=== PATIENT | male | born 1985 | race Caucasian/White ===

== ENCOUNTER 2022-02-22 14:28 | Emergency (ER) | payer SELFPAY ==
[2022-02-22 14:30] VITALS: BP 134/78; PULSE 78; RESP 16; TEMP 37.2; O2SAT 99; BMI 31.8
--- NOTE | 2022-02-22 17:19 | EDS_ITS ---
HPI History of Present Illness Chief Complaint: Mental Health Informant: patient Onset/Context/Timing Onset: Days (3 to 4 days) Context: Gradual Onset Timing: Waxes and wanes Narrative Narrative: Patient presents due to mental health concerns. He states over the past 4 days or so he has had thoughts of being God and having visions of dying. He does not have any visions of how he denies, just has this overwhelming feeling that he is not going to be here much longer. He denies any thoughts of hurting himself or anyone else. He denies auditory or visual hallucinations. Patient denies any history of mental illness. He does note that he stopped smoking weed 3 or 4 days ago. He denies any other drug use denies alcohol use. PFSH PFSH Medical History no medical history no medical history Allergy/AdvReac Type Severity Reaction Status Date / Time No Known Allergies Allergy Verified 02/22/22 14:30 Social History Smoking Status: Current every day smoker tobacco type: cigarettes ROS ROS ED Constitutional Constitutional ED: Denies chills or fever(s) Eyes Eyes: Denies change in vision or discharge from eye(s) ENT ENT ED: Denies discharge from eye(s), rhinorrhea or sore throat Cardiovascular Cardiovascular: Denies chest pain or palpitations Respiratory/Chest Respiratory/Chest: Denies cough or dyspnea Gastrointestinal Gastrointestinal: Denies abdominal pain, nausea or vomiting Genitourinary Genitourinary ED: Denies dysuria Musculoskeletal Musculoskeletal: Denies back pain or extremity pain Integumentary Denies Abrasions or rash Neurologic Neurologic: Denies headache(s) or weakness Psychiatric Psychiatric: Denies anxiety or depression Endocrine Endocrinology: Denies polydipsia or polyuria Allergic/Immunologic Allergic/Immunologic ED: Denies lip swelling or urticaria EXAM Physical Exam Const Vital Signs: 02/22/22 14:30 02/22/22 19:26 02/22/22 22:22 Temperature 98.9 F Temperature Source Temporal Pulse Rate 78 68 Respiratory Rate 16 16 16 Blood Pressure 134/78 H 121/77 H Blood Pressure Mean 96 91 Pulse Ox 99 98 Oxygen Delivery Method Room Air Room Air Positive well nourished and well developed General Appearance ED: well developed HEENT Reports normocephalic and head/scalp atraumatic Eyes PERRL and EOMs intact bilaterally Neck supple Chest Wall inspection of chest normal and palpation of chest normal Resp normal respiratory effort and clear to auscultation bilaterally Cardio regular rate and regular rhythm GI normal to inspection, nondistended, normoactive bowel sounds Palpation: soft Back/Spine no CVA tenderness Extremity normal to inspection Neuro oriented x3 and no sensory deficits noted Sensorium / Orientation: alert Motor Exam: strength 5/5 throughout Psych mental status grossly normal Skin no rashes or lesions noted MDM MDM MDM Narrative Medical decision making narrative: Lab work for mental health clearance obtained. Lab Data Attestation: I reviewed the patient's lab results. Labs: Laboratory Results - last 24 hr 02/22/22 02/22/22 02/22/22 17:25 17:25 17:25 WBC 8.5 RBC 4.96 Hgb 14.7 Hct 42.4 MCV 85.5 MCH 29.6 MCHC 34.7 RDW Std Deviation 38.3 RDW Coeff of Rashid 12.4 Plt Count 267 MPV 9.9 Immature Gran % (Auto) 0.100 Neut % (Auto) 39.6 L Lymph % (Auto) 48.1 H Hettinger % (Auto) 9.6 Eos % (Auto) 2.0 Baso % (Auto) 0.6 Absolute Neuts (auto) 3.4 Absolute Lymphs (auto) 4.08 Nucleated RBC % 0 Sodium 140 Potassium 3.8 Chloride 105 Carbon Dioxide 30.0 Anion Gap 5 BUN 13 Creatinine 0.75 Estim Creat Clear Calc 148.01 Est GFR (MDRD) Af Amer 151 Est GFR (MDRD) Non-Af 125 BUN/Creatinine Ratio 17.4 Glucose 112 H Calcium 9.7 Urine Opiates Screen Urine Methadone Screen Ur Barbiturates Screen Ur Phencyclidine Scrn Ur Amphetamines Screen MDMA (Ecstasy) Screen U Benzodiazepines Scrn Urine Cocaine Screen U Cannabinoids Screen Ur Drug Screen Comment Ethyl Alcohol < 3.0 02/22/22 17:25 WBC RBC Hgb Hct MCV MCH MCHC RDW Std Deviation RDW Coeff of Rashid Plt Count MPV Immature Gran % (Auto) Neut % (Auto) Lymph % (Auto) Hettinger % (Auto) Eos % (Auto) Baso % (Auto) Absolute Neuts (auto) Absolute Lymphs (auto) Nucleated RBC % Sodium Potassium Chloride Carbon Dioxide Anion Gap BUN Creatinine Estim Creat Clear Calc Est GFR (MDRD) Af Amer Est GFR (MDRD) Non-Af BUN/Creatinine Ratio Glucose Calcium Urine Opiates Screen NEGATIVE Urine Methadone Screen NEGATIVE Ur Barbiturates Screen NEGATIVE Ur Phencyclidine Scrn NEGATIVE Ur Amphetamines Screen NEGATIVE MDMA (Ecstasy) Screen NEGATIVE U Benzodiazepines Scrn NEGATIVE Urine Cocaine Screen NEGATIVE U Cannabinoids Screen POSITIVE H Ur Drug Screen Comment Ethyl Alcohol Treatment and Re-Evaluation Narrative: CBC and chemistry studies unremarkable. Alcohol level is negative. Talk screen positive only for cannabinoids. Patient was seen by counseling center. They will make a referral and follow-up. Patient also has a phone number for a telemetry doc psychiatry service that he is going to call tomorrow. He continues to deny any suicidal homicidal ideation. He feels comfortable to discharge home and have close follow-up. He was reminded that we are here 24/7 if he has any concerning symptoms or thoughts he can return at any point. He voices understanding and agreement. Discharge Plan Triage Chief Complaint: Mental Health ED Provider: Felicia Carvajal Dx/Rx/DC Orders Clinical Impression: Anxiety, Delusions Instructions: Understanding Delusional Disorders, ED Anxiety Reaction Primary Care Provider: Care Physician,No Primary Referrals: Counseling,Center [Group of Physicians] - As soon as possible Care Physician,No Primary [Primary Care Provider] - Disposition Disposition: Home, Self Care
[2022-02-22 17:42] LABS: Absolute Lymphocyte Count 4.08 X10^3/uL (0.83-4.51); Absolute Neutrophil Count 3.4 X10^3/uL (2.0-7.7); Basophil# 0.05 X10^3/uL; Basophil% 0.6 % (0-1); Eosinophil# 0.17 X10^3/uL; Hematocrit 42.4 % (40-54); Hemoglobin 14.7 g/dL (13.0-16.5); Lymphocyte # 4.08 X10^3/ul (0.83-4.51); Lymphocyte % 48.1 % (19-41); Mean Corp Hgb Conc 34.7 g/dL (32-36); Mean Corpuscular Hgb 29.6 pg (27.0-32.0); Mean Corpuscular Volume 85.5 fL (80-94); Mean Platelet Vol. 9.9 fl (6.2-12.0); Monocyte# 0.81 X10^3/uL; Monocyte% 9.6 % (0-10); NRBC Flagged by Analyzer 0 % (0-5); Neutrophil # 3.36 X10^3/uL (2.7-7.7); Neutrophil % 39.6 % (47-70); Platelet Count 267 K/mm3 (150-450); RBC Distribution Width CV 12.4 % (11.6-14.6); RBC Distribution Width SD 38.3 fl (35.1-43.9); Red Blood Count 4.96 M/mm3 (4.6-6.2); White Blood Count 8.5 K/mm3 (4.4-11.0)
[2022-02-22 18:01] LABS: Anion Gap 5 (5-15); BUN 13 mg/dL (7-18); BUN/Creat Ratio 17.4 RATIO (10-20); Calcium,Total 9.7 mg/dL (8.5-10.1); Chloride 105 mmol/L (98-107); Creatinine, Serum 0.75 mg/dL (0.70-1.30); EST Glomerular Filtration Rate 125 mL/min (>60); Est Glom Filt Rate - Afr Amer 151 mL/min (>60); Estimated Creatinine Clearance 148.01 ml/min; Glucose 112 mg/dL (74-106); Potassium 3.8 mmol/L (3.5-5.1); Sodium Level 140 mmol/L (136-145)
--- NOTE | 2022-02-22 18:03 | NURSING ---
CRISIS STATES THAT IF PT NEEDS PLACED- THEN HE WILL GO ON A WAIT LIST AT [facility] (8 AHEAD OF HIM) SINCE HE DOESN'T HAVE INSURANCE.
--- NOTE | 2022-02-22 18:04 | CM.ED ---
Addendum entered by Denise Carson 02/22/22 20:04: STACIE contacted [facility] to verify they received the last fax regarding patient. Rosibel from [facility] verified they received the fax but requested the covid results and EKG also be completed and faxed before patient is evaluated. MD Carvajal informed of information requested by [facility] as well as [facility]. ARSEN Burkett Addendum entered by Denise Carson 02/22/22 19:28: was contacted by Crisis staff explaining patient needs to be medically clear before they are able to evaluate him and inquired about his blood alcohol level. SW explained that was pending and it would be faxed to [facility] once available. MD Carvajal updated by SW patient information had been faxed to [facility] for Crisis to review before evaluating him. STACIE faxed updated labs to include patient's tox screen to [facility]. ARSEN Burkett Original Note: STACIE Note Referral Reason: Mental Health verified patient does not have insurance currently with [facility] staff. STACIE contacted [facility] at [facility] to provide them with demographic information as well as patient's reason for being at ED. Rosibel with [facility] explained patient was new to their system and they would need information faxed to their office to get him entered into their system before he would be evaluated. 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 STACIE faxed H&P, facesheet and 24 case management data to [facility]- [facility]. Plan: further evaluation from [facility] with [facility] ARSEN Burkett
[2022-02-22 18:12] LABS: Amphetamine Urine VISTA NEGATIVE (<1000 ng/mL); Barbiturate Urine VISTA NEGATIVE (< 200 ng/mL); Benzodiazepine Urine VISTA NEGATIVE (< 200 ng/mL); Cocaine Urine VISTA NEGATIVE (< 300 ng/mL); Ecstacy Urine VISTA NEGATIVE (< 500 ng/mL); Methadone Urine VISTA NEGATIVE (< 300 ng/mL); PCP Urine VISTA NEGATIVE (< 25 ng/mL); THC Urine VISTA POSITIVE (< 50 ng/mL); Vista UDS pH Range 6
[2022-02-22 18:56] LABS: Alcohol, Blood (Medical)-Serum < 3.0 mg/dL
[2022-02-22 19:26] VITALS: BP 121/77; PULSE 68; RESP 16; O2SAT 98
[2022-02-22 22:22] VITALS: RESP 16
== END 2022-02-22 23:13 | disposition home or self-care (01) ==
PROVIDERS: Emergency Provider Emergency Medicine; Visit Provider Emergency Medicine
DX: F22 Delusional disorders (principal); F41.9 Anxiety disorder, unspecified; F17.210 Nicotine dependence, cigarettes, uncomplicated
CPT/HCPCS: 80048; 80307; 82077; 85025; 99284